=== PATIENT | female | born 1980 | race Caucasian/White ===

== ENCOUNTER 2018-11-22 10:00 | Observation (INO) ==
[2018-11-22] MEDS ORDERED: Albuterol 2.5 MG/3 ML NEBULIZER IH PRN (10:23)
[2018-11-22] MEDS ORDERED: Clindamycin 900 MG/50 ML 900 MG/50 ML IV.SOLN IVPB ONE (10:23)
[2018-11-22] MEDS ORDERED: Acetaminophen IV 1,000 MG/100 ML INFUS..BTL IVPB ONE (10:25)
[2018-11-22] MEDS ORDERED: *HR* OxyCODONE Immed Rel 5 MG TABLET PO ONE (10:25)
[2018-11-22] MEDS ORDERED: Pregabalin 75 MG CAPSULE PO ONE (10:25)
[2018-11-22] MEDS ORDERED: Ringers Solution, Lactated 1,000 ML IVC SCH ×2 (10:30→16:35)
[2018-11-22] MEDS ORDERED: Ethanol\\Acetic Acid\\Na Ace\\Ben 1,000 ML IRRIG.SOLN IR ONE ×2 (10:36→13:37)
[2018-11-22] MEDS ORDERED: *HR* HYDROmorphone (PF) 1 MG/ML SYRINGE IVP PRN (11:08)
[2018-11-22] MEDS ORDERED: Ondansetron 4 MG/2 ML VIAL IVP ONE (11:08)
[2018-11-22] MEDS ORDERED: *HR* Meperidine 25 MG/ML SYRINGE IVP PRN (11:08)
[2018-11-22] MEDS ORDERED: Total Joint Mixture (50 ml) IR ONE (12:15)
[2018-11-22] MEDS ORDERED: *HR* Midazolam HCl 5 MG/5 ML VIAL IVP ONE (12:20)
[2018-11-22] MEDS ORDERED: *HR* FentaNYL (PF) 100 MCG/2 ML VIAL ONE ×2 (12:20→12:24)
[2018-11-22] MEDS ORDERED: Dexamethasone 4 MG/ML VIAL ONE (12:21)
[2018-11-22] MEDS ORDERED: Propofol 500 MG/50 ML INFUS..BTL ONE ×2 (12:21→14:26)
[2018-11-22] MEDS ORDERED: Ondansetron 4 MG/2 ML VIAL ONE (12:21)
[2018-11-22] MEDS ORDERED: Tranexamic Acid 1,000 MG/10 ML VIAL ONE (12:21)
[2018-11-22] MEDS ORDERED: *HR* Succinylcholine 200 MG/10 ML VIAL IVP ONE (12:25)
[2018-11-22] MEDS ORDERED: *HR* Midazolam HCl 2 MG/2 ML VIAL ONE (14:20)
[2018-11-22 16:34] LABS: Hematocrit 38.7 % (35.3-44.9); Hemoglobin 12.4 g/dL (11.5-15.4)
[2018-11-22] MEDS ORDERED: Naloxone 0.4 MG/ML INJ IVP PRN (16:35)
[2018-11-22] MEDS ORDERED: *HR* Promethazine 25 MG/ML VIAL IVP PRN (16:35)
[2018-11-22] MEDS ORDERED: traMADol 50 MG TABLET PO PRN (16:35)
[2018-11-22] MEDS ORDERED: MOM Conc 10 ML UD.LIQ PO PRN (16:35)
[2018-11-22] MEDS ORDERED: Sennosides 8.6 MG TABLET PO PRN (16:35)
[2018-11-22] MEDS: Ascorbic Acid 500 MG TABLET PO SCH (17:18)
[2018-11-22] MEDS: Clindamycin 900 MG/50 ML 900 MG/50 ML IV.SOLN IVPB SCH (17:19)
[2018-11-22] MEDS: *HR* OxyCODONE Immed Rel 5 MG TABLET PO PRN (19:07)
[2018-11-22] MEDS: Ketorolac 30 MG/ML VIAL IVP PRN (21:18)
[2018-11-23] MEDS: Clindamycin 900 MG/50 ML 900 MG/50 ML IV.SOLN IVPB SCH (00:12)
[2018-11-23] MEDS: *HR* OxyCODONE Immed Rel 5 MG TABLET PO PRN ×6 (00:17→22:40)
[2018-11-23 04:24] LABS: Basophils % 0.1 %; Hematocrit 36.4 % (35.3-44.9); Hemoglobin 11.8 g/dL (11.5-15.4); Immature Granulocytes % 0.5 % (0-4); Lymphocytes % 7.6 %; Mean Corpuscular HGB Conc 32.4 g/dL (31.6-35.5); Mean Corpuscular Hemoglobin 27.8 pg (28.0-33.3); Mean Corpuscular Volume 85.6 fL (83.0-100.0); Monocytes # 0.3 K/mcL (0.0-1.3); Monocytes % 2.2 %; Neutrophils # 11.6 K/mcL (1.6-8.9); Platelet Count 568 K/mcL (140-400); Red Blood Count 4.25 M/mcL (3.82-4.97); Red Cell Distribution Width 15.2 % (11.5-14.5); Segmented Neutrophils % 89.6 %; White Blood Count 12.9 K/mcL (4.3-11.1)
[2018-11-23 04:43] LABS: BUN/Creatinine Ratio 16 (6-26); Blood Urea Nitrogen 11 mg/dL (6-20); Calcium 9.1 mg/dL (8.6-10.3); Carbon Dioxide 28 mEq/L (23-29); Chloride 102 mEq/L (98-107); Glucose 182 mg/dL (70-105); Osmolality,Calculated 288 (280-300); Potassium 4.6 mEq/L (3.5-5.1); Sodium 137 mEq/L (136-145); eGFR For African Americans > 60 (> 60); eGFR For Non-African Americans > 60 (> 60)
[2018-11-23] MEDS: *HR* Enoxaparin 30 MG/0.3 ML SYRINGE SQ SCH ×2 (06:29→16:48)
[2018-11-23] MEDS: Ondansetron 4 MG/2 ML VIAL IVP PRN ×2 (06:29→18:33)
[2018-11-23] MEDS: Multivit/Ca/Min/Fe/FA 1 TAB TABLET PO SCH (07:41)
[2018-11-23] MEDS: Ascorbic Acid 500 MG TABLET PO SCH ×2 (07:41→16:48)
[2018-11-23] MEDS: Ketorolac 30 MG/ML VIAL IVP PRN (08:01)
[2018-11-23] MEDS: Gabapentin 100 MG CAPSULE PO SCH ×3 (09:59→21:17)
[2018-11-23] MEDS: Nicotine 21 MG PATCH.TD24 TD SCH (09:59)
[2018-11-23] MEDS: tiZANidine 4 MG TABLET PO PRN ×2 (12:24→21:17)
[2018-11-23] MEDS: HYDROcodone BIT/Homatropine 5 MG TABLET PO PRN (21:17)
[2018-11-23] MEDS: Temazepam 15 MG CAPSULE PO PRN (22:40)
[2018-11-24] MEDS: *HR* OxyCODONE Immed Rel 5 MG TABLET PO PRN ×5 (02:55→19:56)
[2018-11-24 04:01] LABS: Basophils % 0.1 %; Eosinophils % 0.1 %; Hematocrit 35.2 % (35.3-44.9); Hemoglobin 11.4 g/dL (11.5-15.4); Immature Granulocytes % 0.6 % (0-4); Lymphocytes # 2.7 K/mcL (0.6-4.6); Lymphocytes % 17.7 %; Mean Corpuscular HGB Conc 32.4 g/dL (31.6-35.5); Mean Corpuscular Hemoglobin 27.9 pg (28.0-33.3); Mean Corpuscular Volume 86.3 fL (83.0-100.0); Mean Platelet Volume 9.3 fL (9.4-12.4); Monocytes # 0.9 K/mcL (0.0-1.3); Monocytes % 5.9 %; Neutrophils # 11.5 K/mcL (1.6-8.9); Platelet Count 445 K/mcL (140-400); Red Blood Count 4.08 M/mcL (3.82-4.97); Red Cell Distribution Width 15.8 % (11.5-14.5); Segmented Neutrophils % 75.6 %; White Blood Count 15.2 K/mcL (4.3-11.1)
[2018-11-24 04:18] LABS: BUN/Creatinine Ratio 21 (6-26); Blood Urea Nitrogen 15 mg/dL (6-20); Carbon Dioxide 29 mEq/L (23-29); Chloride 104 mEq/L (98-107); Glucose 85 mg/dL (70-105); Osmolality,Calculated 290 (280-300); Sodium 140 mEq/L (136-145); eGFR For African Americans > 60 (> 60); eGFR For Non-African Americans > 60 (> 60)
[2018-11-24] MEDS: *HR* Enoxaparin 30 MG/0.3 ML SYRINGE SQ SCH ×2 (05:47→18:04)
[2018-11-24] MEDS: HYDROcodone BIT/Homatropine 5 MG TABLET PO PRN ×3 (05:48→21:10)
[2018-11-24] MEDS: Ondansetron ODT 4 MG TAB.RAPDIS SL PRN (05:48)
[2018-11-24] MEDS: Nicotine 21 MG PATCH.TD24 TD SCH (09:00)
[2018-11-24] MEDS: Ascorbic Acid 500 MG TABLET PO SCH ×2 (09:00→15:33)
[2018-11-24] MEDS: Gabapentin 100 MG CAPSULE PO SCH ×3 (09:00→19:56)
[2018-11-24] MEDS: Multivit/Ca/Min/Fe/FA 1 TAB TABLET PO SCH (09:00)
[2018-11-24] MEDS: tiZANidine 4 MG TABLET PO PRN ×2 (13:46→19:56)
[2018-11-24] MEDS: Temazepam 15 MG CAPSULE PO PRN (21:13)
[2018-11-25] MEDS: *HR* OxyCODONE Immed Rel 5 MG TABLET PO PRN ×6 (00:10→22:22)
[2018-11-25] MEDS: Ondansetron ODT 4 MG TAB.RAPDIS SL PRN (04:29)
[2018-11-25] MEDS: *HR* Enoxaparin 30 MG/0.3 ML SYRINGE SQ SCH ×2 (05:04→17:16)
[2018-11-25] MEDS: Ascorbic Acid 500 MG TABLET PO SCH ×2 (07:32→17:16)
[2018-11-25] MEDS: HYDROcodone BIT/Homatropine 5 MG TABLET PO PRN (07:32)
[2018-11-25] MEDS: Nicotine 21 MG PATCH.TD24 TD SCH (07:32)
[2018-11-25] MEDS: Multivit/Ca/Min/Fe/FA 1 TAB TABLET PO SCH (07:32)
[2018-11-25] MEDS: Gabapentin 100 MG CAPSULE PO SCH ×3 (07:32→22:23)
[2018-11-25 07:42] LABS: Hematocrit 35.5 % (35.3-44.9); Hemoglobin 11.5 g/dL (11.5-15.4); Mean Corpuscular HGB Conc 32.4 g/dL (31.6-35.5); Mean Corpuscular Hemoglobin 27.7 pg (28.0-33.3); Mean Corpuscular Volume 85.5 fL (83.0-100.0); Mean Platelet Volume 8.9 fL (9.4-12.4); Platelet Count 643 K/mcL (140-400); Red Blood Count 4.15 M/mcL (3.82-4.97); Red Cell Distribution Width 16.1 % (11.5-14.5); White Blood Count 9.9 K/mcL (4.3-11.1)
[2018-11-25 07:47] LABS: BUN/Creatinine Ratio 19 (6-26); Blood Urea Nitrogen 11 mg/dL (6-20); Calcium 9.1 mg/dL (8.6-10.3); Carbon Dioxide 29 mEq/L (23-29); Chloride 102 mEq/L (98-107); Glucose 103 mg/dL (70-105); Osmolality,Calculated 290 (280-300); Potassium 4.4 mEq/L (3.5-5.1); Sodium 140 mEq/L (136-145); eGFR For African Americans > 60 (> 60); eGFR For Non-African Americans > 60 (> 60)
[2018-11-25] MEDS: Lisinopril 20 MG TABLET PO SCH (11:41)
[2018-11-25] MEDS: tiZANidine 4 MG TABLET PO PRN (17:16)
[2018-11-25] MEDS: diazePAM 5 MG TABLET PO PRN ×2 (17:16→22:23)
[2018-11-26] MEDS: *HR* OxyCODONE Immed Rel 5 MG TABLET PO PRN ×2 (02:46→07:13)
[2018-11-26] MEDS: diazePAM 5 MG TABLET PO PRN ×2 (02:47→07:14)
[2018-11-26] MEDS: *HR* Enoxaparin 30 MG/0.3 ML SYRINGE SQ SCH (06:34)
[2018-11-26] MEDS: Ascorbic Acid 500 MG TABLET PO SCH (07:13)
[2018-11-26] MEDS: Multivit/Ca/Min/Fe/FA 1 TAB TABLET PO SCH (07:13)
[2018-11-26] MEDS: Lisinopril 20 MG TABLET PO SCH (07:13)
[2018-11-26] MEDS: Gabapentin 100 MG CAPSULE PO SCH (07:14)
[2018-11-26] MEDS: Nicotine 21 MG PATCH.TD24 TD SCH (07:14)
[2018-11-26 07:59] VITALS: BP 148/93
[2018-11-26] MEDS: HYDROcodone BIT/Homatropine 5 MG TABLET PO PRN (10:14)
== END 2018-11-26 10:55 | disposition home health service (06) ==
LOC: 3NENU 10:00 → SAMDAY 10:00 → 3NENU 16:24
PROVIDERS: ADMIT Orthopaedic Surgery; ATTEND Orthopaedic Surgery

== ENCOUNTER 2019-11-20 12:15 | Inpatient (IN) ==
[~2019-11-20 12:15] MED LIST: Povidone-Iodine 45 ML, Sodium Chloride IRRigation 1,000 ML IR ONE; TOTAL JOINT MIXTURE (100ML) INTRAART ONE
[2019-11-20] MEDS ORDERED: Clindamycin 900 MG/50 ML 900 MG/50 ML IV.SOLN IVPB ONE (12:38)
[2019-11-20] MEDS ORDERED: Ringers Solution, Lactated 1,000 ML IVC SCH ×2 (12:45→19:05)
[2019-11-20] MEDS ORDERED: Vancomycin 1,500 MG/265 ML IV.SOLN IVPB ONE (12:59)
[2019-11-20] MEDS ORDERED: Lidocaine -MPF 2% 2 ML VIAL ONE ×2 (13:56→14:16)
[2019-11-20 14:09] LABS: Adenovirus Not Detected (Not Detect); Bordetella Pertussis Not Detected (Not Detect); Chlamydophila pneumoniae Not Detected (Not Detect); Coronavirus 229E Not Detected (Not Detect); Coronavirus HKU1 Not Detected (Not Detect); Coronavirus NL63 Not Detected (Not Detect); Coronavirus OC43 Not Detected (Not Detect); Human Metapneumovirus Not Detected (Not Detect); Human Rhinovirus/Enterovirus Not Detected (Not Detect); Influenza A Subtype 2009 H1 Not Detected (Not Detect); Influenza B Not Detected (Not Detect); Mycoplasma pneumoniae Not Detected (Not Detect); Parainfluenza Virus 1 Not Detected (Not Detect); Parainfluenza Virus 2 Not Detected (Not Detect); Parainfluenza Virus 3 Not Detected (Not Detect); Parainfluenza Virus 4 Not Detected (Not Detect); Respiratory Syncytial Virus Not Detected (Not Detect); SARS-CoV-2 Not Detected (Not Detect)
[2019-11-20] MEDS ORDERED: *HR* PHENYLEPHRINE 1,000 MCG/10 ML SYRINGE IVP ONE (14:13)
[2019-11-20] MEDS ORDERED: *HR* Propofol 200 MG/20 ML VIAL IVP ONE (14:16)
[2019-11-20] MEDS ORDERED: Ondansetron 4 MG/2 ML VIAL ONE (14:16)
[2019-11-20] MEDS ORDERED: Dexamethasone 4 MG/ML VIAL ONE (14:16)
[2019-11-20] MEDS ORDERED: Vancomycin 1,000 MG VIAL ONE (14:20)
[2019-11-20] MEDS ORDERED: *HR* Magnesium Sulfate 1 GM/2 ML VIAL ONE (14:21)
[2019-11-20] MEDS ORDERED: Ethanol\\Acetic Acid\\Na Ace\\Ben 1,000 ML IRRIG.SOLN IR ONE (14:21)
[2019-11-20] MEDS ORDERED: Tranexamic Acid 1,000 MG/10 ML VIAL ONE (14:21)
[2019-11-20] MEDS ORDERED: *HR* FentaNYL (PF) 100 MCG/2 ML VIAL ONE (14:29)
[2019-11-20] MEDS ORDERED: Ropivacaine/PF 0.5% 30 ML VIAL ONE (14:34)
[2019-11-20] MEDS ORDERED: Dexmedetomidine HCl 400 MCG/100 ML MLS IVC ONE (14:34)
[2019-11-20] MEDS ORDERED: *HR* Midazolam HCl 2 MG/2 ML VIAL ONE (14:36)
[2019-11-20] MEDS ORDERED: *HR* Promethazine 25 MG/ML VIAL IVP PRN ×2 (14:37→19:05)
[2019-11-20] MEDS ORDERED: Ondansetron 4 MG/2 ML VIAL IVP PRN ×2 (14:37→19:05)
[2019-11-20] MEDS ORDERED: *HR* OxyCODONE Immed Rel 5 MG TABLET PO PRN (14:37)
[2019-11-20] MEDS ORDERED: *HR* HYDROMORPHONE 2 MG/ML VIAL ONE ×2 (15:12→15:25)
[2019-11-20] MEDS: *HR* HYDROmorphone PF 0.5 MG/0.5 ML SYRINGE IVP PRN ×4 (16:25→16:40)
[2019-11-20] MEDS ORDERED: Ketorolac 30 MG/ML VIAL IVP ONE (16:52)
[2019-11-20 17:08] LABS: Hematocrit 43.1 % (35.3-44.9); Hemoglobin 13.6 g/dL (11.5-15.4)
[2019-11-20] MEDS: *HR* HYDROmorphone 2 MG/ML SYRINGE IVP SCH ×4 (17:10→17:25)
[2019-11-20] MEDS ORDERED: Dextrose Gel 15 GM/37.5 ML TUBE PO PRN ×2 (19:05)
[2019-11-20] MEDS ORDERED: Ondansetron ODT 4 MG TAB.RAPDIS PO PRN (19:05)
[2019-11-20] MEDS ORDERED: *HR* Dextrose 50 % in Water (Vial) 50 ML VIAL IVP PRN (19:05)
[2019-11-20] MEDS ORDERED: HYDROcodone BIT/Homatropine 5 MG TABLET PO PRN (19:05)
[2019-11-20] MEDS ORDERED: D5% in Water 1,000 ML IVC PRN (19:05)
[2019-11-20] MEDS ORDERED: MOM Conc 10 ML UD.LIQ PO PRN (19:05)
[2019-11-20] MEDS ORDERED: Ibuprofen 200 MG TABLET PO PRN (19:05)
[2019-11-20] MEDS ORDERED: Sennosides 8.6 MG TABLET PO PRN (19:05)
[2019-11-20] MEDS ORDERED: Naloxone 0.4 MG/ML INJ IVP PRN (19:05)
[2019-11-20] MEDS: Gabapentin 400 MG CAPSULE PO SCH (20:43)
[2019-11-20] MEDS: Ascorbic Acid 500 MG TABLET PO SCH (20:43)
[2019-11-20] MEDS: *HR* OxyCODONE Immed Rel 5 MG TABLET PO PRN (20:44)
[2019-11-20] MEDS ORDERED: Insulin LISPRO 300 UNITS/3 ML VIAL SQ SCH (21:00)
[2019-11-21] MEDS: *HR* OxyCODONE Immed Rel 5 MG TABLET PO PRN ×3 (01:39→11:08)
[2019-11-21] MEDS ORDERED: Vancomycin 1,500 MG/265 ML IV.SOLN IVPB SCH (02:00)
[2019-11-21 04:50] VITALS: BP 132/87
[2019-11-21 05:09] LABS: Basophils % 0.1 %; Hemoglobin 12.4 g/dL (11.5-15.4); Immature Granulocytes % 0.5 % (0-4); Lymphocytes # 0.9 K/mcL (0.6-4.6); Mean Corpuscular Hemoglobin 26.1 pg (28.0-33.3); Mean Corpuscular Volume 84.2 fL (83.0-100.0); Monocytes # 0.7 K/mcL (0.0-1.3); Monocytes % 4.7 %; Neutrophils # 13.1 K/mcL (1.6-8.9); Platelet Count 387 K/mcL (140-400); Red Blood Count 4.75 M/mcL (3.82-4.97); Red Cell Distribution Width 18.3 % (11.5-14.5); Segmented Neutrophils % 88.7 %; White Blood Count 14.8 K/mcL (4.3-11.1)
[2019-11-21 05:25] LABS: BUN/Creatinine Ratio 21 (6-26); Blood Urea Nitrogen 12 mg/dL (6-20); Calcium 9.1 mg/dL (8.6-10.3); Carbon Dioxide 25 mEq/L (23-29); Chloride 108 mEq/L (98-107); Glucose 136 mg/dL (70-105); Osmolality,Calculated 288 (280-300); Potassium 4.5 mEq/L (3.5-5.1); Sodium 138 mEq/L (136-145); eGFR For African Americans > 60 (> 60); eGFR For Non-African Americans > 60 (> 60)
[2019-11-21] MEDS ORDERED: Insulin LISPRO 300 UNITS/3 ML VIAL SQ SCH (07:30)
[2019-11-21] MEDS ORDERED: Multivit/Ca/Min/Fe/FA 1 TAB TABLET PO SCH (09:00)
[2019-11-21] MEDS ORDERED: Aspirin Enteric Coated 81 MG Tablet PO SCH (09:00)
[2019-11-21] MEDS ORDERED: levoFLOXacin 500 MG TABLET PO SCH (09:00)
[2019-11-21] MEDS: Gabapentin 400 MG CAPSULE PO SCH (10:25)
[2019-11-21] MEDS: Ascorbic Acid 500 MG TABLET PO SCH (10:26)
== END 2019-11-21 12:13 | disposition home or self-care (01) | DRG 302 ==
LOC: SAMDAY 12:15 → 3NENU 18:18
PROVIDERS: ADMIT Orthopaedic Surgery; ATTEND Orthopaedic Surgery